=== PATIENT | female | born 1945 | race African-American/Black ===

== ENCOUNTER → 2017-04-28 | Outpatient (CLI) | payer MEDICARE ==
--- NOTE | 2017-04-29 09:56 | MM ---
Reason for exam: screening (asymptomatic). Last mammogram was performed 1 year and 8 months ago. History: Patient is postmenopausal. Took estrogen for 5 years beginning at age 52. Physical Findings: A clinical breast exam by your physician is recommended on an annual basis and results should be correlated with mammographic findings. MG 3D Screening Mammo W/Cad Bilateral CC and MLO view(s) were taken. Prior study comparison: August 16, 2015, bilateral MG 3d screening mammo w/cad. February 24, 2012, bilateral digital screening mammo w/CAD. The breast tissue is heterogeneously dense. This may lower the sensitivity of mammography. No significant changes when compared with prior studies. ASSESSMENT: Benign, BI-RAD 2 RECOMMENDATION: Routine screening mammogram of both breasts in 1 year.
== END | disposition home or self-care (01) ==
LOC: RADMAMWWP 08:21
PROVIDERS: ATTEND Internal Medicine
DX: Z12.31 Encounter for screening mammogram for malignant neoplasm of breast (principal); I10 Essential (primary) hypertension; E66.9 Obesity, unspecified
CPT/HCPCS: 77063; G0202

== ENCOUNTER → 2020-04-27 | Outpatient (CLI) | payer MEDICARE ==
--- NOTE | 2020-05-01 11:29 | MM ---
Reason for exam: screening (asymptomatic). Last mammogram was performed 3 years ago. History: Patient is postmenopausal. Took estrogen for 5 years beginning at age 52. Physical Findings: A clinical breast exam by your physician is recommended on an annual basis and results should be correlated with mammographic findings. MG 3D Screening Mammo W/Cad Bilateral CC and MLO view(s) were taken. Prior study comparison: April 28, 2017, bilateral MG 3d screening mammo w/cad. August 16, 2015, bilateral MG 3d screening mammo w/cad. The breast tissue is heterogeneously dense. This may lower the sensitivity of mammography. There are benign appearing round dystrophic calcifications bilaterally. There is no discrete abnormality. ASSESSMENT: Benign, BI-RAD 2 RECOMMENDATION: Routine screening mammogram of both breasts in 1 year.
== END | disposition home or self-care (01) ==
LOC: RADMAMWWP 15:49
PROVIDERS: ATTEND Internal Medicine
DX: Z12.31 Encounter for screening mammogram for malignant neoplasm of breast (principal)
CPT/HCPCS: 77063; 77067

== ENCOUNTER → 2022-08-15 | Outpatient (CLI) | payer MEDICARE ==
--- NOTE | 2022-08-18 10:51 | MM ---
Reason for Exam: Screening (asymptomatic). Last mammogram was performed 2 year(s) and 3 month(s) ago. Patient History: Menarche at age 14. First Full-Term at age 24. Left ovary removed at age 50. Right ovary removed at age 50. Hysterectomy at age 50. Postmenopausal. Patient has history of breast feeding. Estrogen for 5 years from age 52 until age 57. Risk Values: Audrey 5 year model risk: 1.6%. NCI Lifetime model risk: 3.4%. Prior Study Comparison: 08/16/2015 Bilateral Screening Mammogram, [facility]. 04/28/2017 Bilateral Screening Mammogram, [facility]. 04/27/2020 Bilateral Screening Mammogram, [facility]. Tissue Density: The breast tissue is heterogeneously dense. This may lower the sensitivity of mammography. Findings: Analyzed By CAD. There is no suspicious group of microcalcifications or new suspicious mass in either breast. Overall Assessment: Negative, BI-RAD 1 Management: Screening Mammogram of both breasts in 1 year. A clinical breast exam by your physician is recommended on an annual basis and results should be correlated with mammographic findings. [facility] will attempt to contact patient to return for supplemental views and ultrasound if indicated. Electronically signed and approved by: Humble Lai DO
== END | disposition home or self-care (01) ==
LOC: RADMAMWWP 10:57
PROVIDERS: ATTEND Internal Medicine
DX: Z12.31 Encounter for screening mammogram for malignant neoplasm of breast (principal); Z78.0 Asymptomatic menopausal state; Z90.721 Acquired absence of ovaries, unilateral
CPT/HCPCS: 77063; 77067

== ENCOUNTER → 2023-09-03 | Outpatient (CLI) | payer MEDICARE ==
--- NOTE | 2023-09-05 16:03 | MM ---
Reason for Exam: Screening (asymptomatic). Last mammogram was performed 1 year(s) and 1 month(s) ago. Patient History: Menarche at age 14. First Full-Term at age 24. Left ovary removed at age 50. Right ovary removed at age 50. Hysterectomy at age 50. Postmenopausal. Patient has history of breast feeding. Estrogen for 5 years from age 52 until age 57. Risk Values: Audrey 5 year model risk: 1.6%. NCI Lifetime model risk: 3.2%. Prior Study Comparison: 04/28/2017 Bilateral Screening Mammogram, [facility]. 04/27/2020 Bilateral Screening Mammogram, [facility]. 08/15/2022 Bilateral MG 3D screening mammo w/cad, [facility]. Tissue Density: The breast tissue is heterogeneously dense. This may lower the sensitivity of mammography. Findings: Analyzed By CAD. The pattern is symmetrical. There is some new rounded calcifications in the posterior medial posterior right breast best visualized on the mediolateral oblique view all centimeters in the nipple. Additional workup with magnification compression views is recommended. Large coarse calcifications within the right breast. Smaller scattered benign-appearing calcifications are present bilaterally. No suspicious groups of microcalcifications, spiculated or lobular masses, architectural distortion or other secondary signs of malignancy are mammographically apparent. Overall Assessment: Incomplete: need additional imaging evaluation, BI-RAD 0 Management: Diagnostic Mammogram of the right breast. A negative mammogram report should not preclude additional follow up of suspicious palpable abnormalities. Patient should continue monthly self breast exam. A clinical breast exam by your physician is recommended on an annual basis and results should be correlated with mammographic findings. Electronically signed and approved by: Enrique Brown D.O. Radiologis
== END | disposition home or self-care (01) ==
LOC: RADMAMWWP 10:00
PROVIDERS: ATTEND Internal Medicine
DX: Z12.31 Encounter for screening mammogram for malignant neoplasm of breast (principal); Z78.0 Asymptomatic menopausal state
CPT/HCPCS: 77063; 77067

== ENCOUNTER → 2023-09-11 | Outpatient (CLI) | payer MEDICARE ==
--- NOTE | 2023-09-11 10:33 | MM ---
Reason for Exam: Additional evaluation requested from abnormal screening. Last screening mammogram was performed less than 1 month ago. Patient History: Menarche at age 14. First Full-Term at age 24. Left ovary removed at age 50. Right ovary removed at age 50. Hysterectomy at age 50. Postmenopausal. Patient has history of breast feeding. Estrogen for 5 years from age 52 until age 57. Risk Values: Audrey 5 year model risk: 1.7%. NCI Lifetime model risk: 3.5%. Prior Study Comparison: 08/16/2015 Bilateral Screening Mammogram, [facility]. 04/28/2017 Bilateral Screening Mammogram, [facility]. 04/27/2020 Bilateral Screening Mammogram, [facility]. 08/15/2022 Bilateral MG 3D screening mammo w/cad, [facility]. 09/03/2023 Bilateral MG 3D screening mammo w/cad, [facility]. Tissue Density: Right: The breast tissue is heterogeneously dense. This may lower the sensitivity of mammography. Findings: Analyzed By CAD. Heterogeneous grouped microcalcifications upper-outer quadrant right breast far posterior depth on magnification views. These have increased from recent prior and are new from older priors. Tissue sampling is recommended. Overall Assessment: Suspicious, BI-RAD 4 Management: Stereotactic Core Biopsy of the right breast. Results were given to the patient verbally at the time of exam. Patient should continue monthly self-breast exams. A clinical breast exam by your physician is recommended on an annual basis. This exam should not preclude additional follow-up of suspicious palpable abnormalities. Note on Audrey scores and lifetime risk: 1. A Audrey score greater than 3% is considered moderate risk. If this is the case, consider specialist referral to assess eligibility for a risk reducing agent. 2. If overall lifetime risk for the development of breast cancer is 20% or higher, the patient may qualify for future screening with alternating mammogram and breast MRI. Electronically signed and approved by: Butch Blum M.D. Radiologist
== END | disposition home or self-care (01) ==
LOC: RADMAMWWP 09:55
PROVIDERS: ATTEND Internal Medicine
DX: R92.331 Mammographic heterogeneous density, right breast (principal); Z78.0 Asymptomatic menopausal state
CPT/HCPCS: 77065; G0279; 77061

== ENCOUNTER → 2023-09-21 | Day surgery (SDC) | payer MEDICARE ==
[2023-09-21 10:36] VITALS: RESP 16
[2023-09-21 11:32] VITALS: BP 155/82; PULSE 70; TEMP 98.3
--- NOTE | 2023-09-29 07:35 | MM ---
Risk Values: Audrey 5 year model risk: 1.7%. NCI Lifetime model risk: 3.5%. Prior Study Comparison: 08/15/2022 Bilateral MG 3D screening mammo w/cad, [facility]. 09/03/2023 Bilateral MG 3D screening mammo w/cad, [facility]. 09/11/2023 Right MG 3D work up w/cad RT, [facility]. Pathology Description: Marker Left Behind. Specimen Radiograph. Calcium Found: Yes Approach: CC FA Needle Type: Eviva Cores: 6 Skin Nicks: 2 Gauge: 9 The calcifications in question within the right breast were targeted by the undersigned. Procedure was performed by the undersigned. Informed consent was obtained and all of the patients questions were answered. The standard sterile technique was utilized and appropriate local anesthesia was obtained with 1% licocaine. Mammotome probe was advanced and multiple core samples were obtained and sent to pathology for interpretation. Microclip marker was deployed at the site of biopsy. Post procedural mammogram demonstrates appropriate deployment of radiopaque clip marker. The patient tolerated the procedure well and left the department in stable condition. Pathology results are pending. Impression: Successful stereotactic core biopsy right breast. Pathology Results: Result: Benign, Fibrocystic change. RIGHT BREAST, STEREOTACTIC CORE BIOPSY: Fibrocystic change with apocrine metaplasia, columnar cell change and fibroadenomatoid stromal hyperplasia with focal microcalcification. Negative for in situ or invasive carcinoma. Overall Assessment: Benign Management: Diagnostic Mammogram of the right breast in 6 months. Electronically signed and approved by: Mratell Carrera M.D. Radiologis
== END ==
LOC: RADMAMWWP 09:47
PROVIDERS: ATTEND Internal Medicine
DX: N60.81 Other benign mammary dysplasias of right breast (principal)
CPT/HCPCS: 88305; 19081; A4648; J2001